=== PATIENT | female | born 1930 | race Caucasian/White ===

== ENCOUNTER → 2016-05-29 | Outpatient (CLI) | payer MEDICARE, OTHER ==
--- NOTE | 2016-05-29 18:27 | RADRPT ---
PROCEDURE: XR Knees. CLINICAL INDICATION: Bilateral knee pain. TECHNIQUE: Total of six views. Frontal, oblique, and lateral views of both knees. COMPARISON: No prior study is available for comparison. FINDINGS: There is no fracture or dislocation. There is diffuse osteopenia. There are severe degenerative changes of both hips with osteophytes, bilateral lateral joint compart ment narrowing, subarticular sclerosis, and deformity. There is bilateral valgus deformity. There is no lytic or blastic lesion. There is no radiopaque foreign body. IMPRESSION: 1. Diffuse osteopenia. 2. Severe degenerative changes of both knees. RPTAT: QQ .Dimas Meraz MD, MD Date Time Electronically viewed and signed by .Dimas Meraz MD, MD on 05/29/2016 18:26 .R/
--- NOTE | 2016-05-30 06:50 | HKNOTE ---
DATE OF SERVICE: 05/29/2016 MAIN COMPLAINT: Pain in both knees, worse on the right side. HISTORY OF MAIN COMPLAINT: Patient is an 86-year-old female who is well known to me. I have operat ed on both her hips approximately 2005. She is very pleased with the result of her hip surgery. For the past several years now, she has had increasing pain in both knees. At one time about a year ago, she had to go to [facility] Emergency Room when she was not able to walk. X-rays were ta anastacio and she was told that she was "too old to have knee replacement surgery," but he gave her a cor tisone injection into the knee and that helped a great deal. Over the past 3 days, the right knee has become very much worse without any recent injury. Today, s he has had some improvement. Three days ago, the pain was severe. The patient has difficulty climb ing stairs and walking. Unable to go more than a half a block at a time without stopping. She does not get any rest pain or neck pain. She takes Tylenol if necessary. She does have a history of pr oblems with her lower back. She has chronic low back pain. She has been diagnosed as having degene rative disk disease and compression fractures to the lumbar spine as well as "severe arthritis." On a level surface as noted, she cannot walk more than a half a block at a time. She is not using a w alking aid because she is "too vain." In the last couple a days, she has been limping quite markedl y. She does not have a shoe lift. She cannot clip her toenails, but she can put on her shoes and s ocks. PAST ORTHOPEDIC HISTORY: Bilateral hip surgery by Dr. Israel as noted above back in approximate ly 2005. PRIOR CORTISONE INTAKE: One cortisone injection in the past into the left knee. ALCOHOL INTAKE: None. OTHER JOINT PROBLEMS: Left shoulder. BLOOD TESTS FOR ARTHRITIS: Yes. She does not know the result. PRIOR INJURIES TO HIPS OR KNEES: None. WORK STATUS: Patient is retired. PAST MEDICAL HISTORY: 1. Atrial fibrillation. 2. Leaky heart valve. 3. Diabetes. 4. Hypertension. PAST SURGICAL HISTORY: 1. Nose surgery [place] [address] Neal. 2. Breast cancer surgery by Dr. Rosas in 2005 to 1986. 3. Eye surgery by Dr. Garcia in the . 4. Open heart surgery by Dr. De La Rosa in 1993 (mitral valve leakage). 5. Placement of 2 cardiac stents in 2016. ALLERGIES: PENICILLIN. MEDICATIONS: 1. Anastrozole 1 mg daily by mouth. 2. Atorvastatin 10 mg nightly. 3. Celecoxib 200 mg daily. 4. Digoxin 125 mcg tablet daily by mouth. 5. Furosemide 20 mg tablet daily by mouth as needed. 6. Lorazepam 1 mg once a day. 7. Metformin 500 mg twice a day. 6. Metoprolol 50 mg once a day. 7. Paroxetine 10 mg nightly. 8. Xarelto 15 mg daily by mouth. 9. Daily aspirin 81 mg daily by mouth. SYSTEMS REVIEW: Prone to severe headaches. Varicose veins, gait disturbance, hypertension, difficu lty breathing, diabetes. Ankle swell. Has a heart defect. Otherwise normal. HABITS: Patient does not smoke or drink alcoholic beverages. PROJECT ACCOUNT MANAGER: Dr. Jeff Khalil, [address] [place] [address]. PHYSICAL EXAMINATION GENERAL: The patient is a delightful and fit looking 86-year-old female. She looks at least 10 yea rs younger than her stated age. VITAL SIGNS: Height 5 feet 8 inches, weight 185 pounds. Blood pressure 180/80, temperature 98.3. Patient walks with an antalgic gait. She does not have a cane. RIGHT KNEE: Extension is full, flexion lacks 25 degrees. The right knee shows normal alignment. Ac tive and passive extension is 0 degrees. Active and passive flexion is 135 degrees. The medial and l ateral collateral ligaments and cruciate ligaments are intact. Gely test is negative. There is no effusion, tenderness, scarring, crepitus, or cysts. The patella tracks normally. There is no tender ness on the articular surface of the patella or in the patellar groove. LEFT KNEE: Valgus alignment, extension is full. Flexion lacks 20 degrees range of motion. There i s crepitus in the knee, none in the patella. At the very end of each of the knee, there is marked s evere pain on forced flexion. IMAGING: X-rays of both knees obtained today, [facility] ([facility] views of eac h knee ) show exceedingly severe degenerative osteoarthritis of both knees, markedly more severe on the right side where there is [id number] contact. Both patellofemoral joints show severe degenera tive changes. Marked osteophyte formation throughout the knee. Moderate osteoporosis. DIAGNOSES 1. Severe degenerative osteoarthritis of both knees. 2. Hypertension. 3. Diabetes. 4. Atrial fibrillation. 5. Currently on Xarelto. 6. History of 2 cardiac stent placements 7. History of breast cancer. MANAGEMENT: Under sterile conditions, the patient was given injection of 2 mL of Kenalog and 6 mL o f 2% lidocaine into each knee. DISCUSSION: This patient appears to be in fairly good health. She does have a history of cardiac pr oblems, as well as being currently on Xarelto. Her diabetes is said to be under control. The patient is advised that the cortisone may give 2 to 3 months of relief at this time or it may no t give her more than a month of relief. The outcome has never really known ahead of time. If the cortisone gave her a great deal of relief, then we can repeat the injections once every 3 mon ths or longer as needed. If the arthritis progresses rapidly, then we may be forced to perform a right knee replacement and s ubsequently a left knee replacement. Patient will be seen again as mentioned for further evaluation and treatment. She was referred to [facility], [employer]. I spent considerable time with her discussing knee replacement and merry young is involved. FINAL DIAGNOSES: 1. Severe degenerative osteoarthritis of both knees. 2. Hypertension. 3. Diabetes. 4. Atrial fibrillation. 5. Currently on Xarelto. 6. History of 2 cardiac stent placements 7. History of breast cancer. She will be seen again as mentioned for further evaluation and treatment. Split dictation (letter to be sent separately from above dictation) May 29, 2016 Dr. Jeff Khalil [address] [id number] Khalil: Your patient, Bella Marrero was seen in my office today complaining of pain in both knees. She has been a patient of mine since 2006 and I have performed hip replacements on her. She has quite severe degenerative osteoarthritis of both knees and will eventually need to have bila teral knee replacements if she lives long enough. She seems to be in good health at this time in as much as her various medical problems are under con trol. I gave her a cortisone injection and we will continue with conservative management for as long as po carson. Enclosed is a copy of my office records. With warmest regards, LANDON ISRAEL MD Dictated By: LANDON RIVERO/GERARDO Conf#: [id number] DID#: [id number]
== END | disposition home or self-care (01) ==
LOC: HKI 14:51
DX: M17.0 Bilateral primary osteoarthritis of knee (principal); I10 Essential (primary) hypertension; E11.9 Type 2 diabetes mellitus without complications; I48.91 Unspecified atrial fibrillation; Z79.01 Long term (current) use of anticoagulants; Z95.5 Presence of coronary angioplasty implant and graft; Z85.3 Personal history of malignant neoplasm of breast
CPT/HCPCS: 73562; G0463; J3301

== ENCOUNTER → 2018-07-01 | Outpatient (CLI) | payer OTHER ==
--- NOTE | 2018-07-01 17:44 | CONS ---
Assessment/Plan Assessment/Plan Hospital Course (Demo Recall) 88-year-old female with end-stage osteoarthritis of bilateral knees with valgus deformity. Secondary to multiple medical problems including diabetes, atrial fibrillation, shortness of breath, recent coronary artery stent placement she is not a good surgical candidate. NSAIDs are contraindicated secondary to cardiac disease and anticoagulation use. She failed a steroid injection by Dr. Israel 2 years ago. Therefore I am recommending hyaluronic acid injection. plan: Bilateral knee Monovisc injection Ice Low impact activity Walker Assessment/Plan (Daily) Bilateral knee viscosupplementation injection procedure: Risks and benefits of viscosupplementation injection reviewed with patient. The risks include infection, failure, pain, swelling, nerve/tendon/ligament damage. The patient verbalized understanding and verbal consent was obtained prior to procedure. The right and left knee was prepped in a sterile fashion with alcohol and betadine the site of injection was confirmed. Anteromedial approach was used. The skin and capsule was anesthetized with 3mL 1% lidocaine. The right and left knee were each injected with Monovisc. Injection flowed freely. Good hemostasis was achieved and no complications noted. The patient tolerated the procedure well. Limit activity and ice for 24-48 hours Consultation Date/Type/Reason Admit Date/Time Date of Consultation: Jul 01, 2018 Reason for Consultation Bilateral knee pain Date/Time of Note DATE: 07/01/18 TIME: 17:30 Hx of Present Illness Is a 88-year-old female with a chief complaint of right and left knee pain. The pain is worse in the left knee. The pain began approximately years ago. The patient's pain is in the medial and lateral aspect of the right and left knee. Pain is not radiating to the lower leg. The pain is rated as a 4/10. Patient denies complaints of numbness or tingling although states she has history of peripheral neuropathy. The pain is exacerbated by climbing stairs and ambulation. She had a steroid injection [address] Israel[address] It hel ped only for 1 month. Of note she is on both aspirin and Xarelto and NSAIDs are contraindicated. She is also having an echocardiogram done soon secondary to some shortness of breath. ----- Duration: Years Injury: Left knee injury many years ago Walking tolerance: Limited Limp: Yes Support: Walker most of the time Swelling: Yes Crepitation: Yes Instability: Yes Stairs: Does not use stairs Physical Therapy: More than 1 year ago Injections: 2 years ago, steroid injection NSAID's: Contraindicated secondary to aspirin and Xarelto use Prior surgery: Bilateral total hip replacements 2005 Back pain: Yes Hip pain: No Risk of AVN : No At this time the patient denies fever, chills, shortness of breath, chest pain, nausea/vomiting, constipation, diarrhea, numbness, and tingling. Past Medical History Atrial fibrillation Mitral valve regurgitation Coronary artery disease Diabetes mellitus type 2 Past Surgical History Bilateral total hip replacements [address] Israel Mitral valve repair 1994 2 coronary artery stents 2016 Family History Significant Family History: no pertinent family hx Social History Alcohol Use: none Smoking Status: Never smoker Drug Use: none Exam/Review of Systems Exam Vitals Weight: 170 pounds Height: 5 foot 8 inches Temperature: 90.1 Heart Rate: 72 Blood Pressure: 192/81 Respiratory Rate: 14 Exam General: Awake, alert, in no acute distress, pleasant and cooperative Heart: regular rhythm Lungs: breathing comfortably, no tachypnea or dyspnea MUSCULOSKELETAL: Right and Left Knee This is a well developed female who is alert, oriented times three and in no apparent distress. Skin is intact over the right and left knee as well as the lower extremity with no abrasions, lacerations, or ulcerations. Observation of the patient's gait reveals an antalgic gait with valgus thrust. Frontal plane alignment is valgus on the right and left knees. There is pain on palpation of lateral and medial joint line. The patient demonstrates grinding anteriorly with ROM. Range of motion: 10 extension to approximately 120 degrees of flexion. Collateral ligament testing reveals no gross instability with varus or valgus stress at 0 and 30 degrees of flexion. Valgus deformity only partially correctable. Negative Gely's and negative posterior drawer. There is significant venous stasis and swelling of lower extremity from the foot to the mid tibia. Neurovascularly intact with 5/5 EHL/tibialis anterior/gastroc. Sensation intact to light touch in a sural, saphenous, deep peroneal, superficial peroneal, medial and lateral plantar nerve distribution. Palpable, symmetric dorsalis pedis and posterior tibial pulses in both lower extremities. Hip examination normal Imaging Imaging The patient received a standard set of films today that were personally reviewed. Imaging included a standing bilateral knee AP, PA flexion, merchant views and a dedicated lateral of the affected knee: Bilateral knees There is valgus alignment of the knee. There is complete loss of joint space lateral compartment(s) moderate loss in the medial and patellofemoral compartments. There is osteophyte formation. There is subchondral sclerosis. There are subchondral cysts. Degenerative changes are most severe in the lateral compartment(s). Decreased bone mineralization. NIURKA SCHAFER MD Jul 01, 2018 17:43
== END | disposition home or self-care (01) ==
LOC: HKI 14:14
PROVIDERS: ATTEND Orthopaedic Surgery Adult Reconstructive Orthopaedic Surgery
DX: M17.0 Bilateral primary osteoarthritis of knee (principal); I48.91 Unspecified atrial fibrillation; I25.10 Atherosclerotic heart disease of native coronary artery without angina pectoris; E11.8 Type 2 diabetes mellitus with unspecified complications; I34.0 Nonrheumatic mitral (valve) insufficiency; Z96.643 Presence of artificial hip joint, bilateral; Z98.61 Coronary angioplasty status
CPT/HCPCS: 73564; G0463; J7327